=== PATIENT | female | born 1985 | race Caucasian/White ===

== ENCOUNTER 2021-07-14 00:13 | Emergency (ER) | payer OTHER ==
[~2021-07-14] VITALS: Ht 167.6 cm; Wt 59.0 kg
--- NOTE | 2021-07-14 00:25 | NUR ---
AUNG S/P INGESTING SHROOMS AT APPROX 1930. PT STATES SHE BELIEVES SHE LOST CONSCIOUSNESS AT ONE POINT AND BELIEVES IT WAS A SYNCOPAL. DOES ENDORSE A HX OF VASOVAGAL SYNCOPAL EPISODES. PT IS CURRENTLY AWAKE AND ALERT X4, RESPONDS TO QUESTIONS APPROPRIATELY AND BREATHING EVEN AND UNALBORED 100% RA. PUPILS DILATED BILATERALLY. PT REPORTS BEING "EXTREMELY DEHYDRATED" AND NASUEOUS. PT PLACED ON MONITOR AND V/S WNL. WAS AT THE BEDSIDE FOR EVAL.
--- NOTE | 2021-07-14 00:32 | NUR ---
PT UNABLE TO PROVIDE URINE AT THIS TIME. URINE CUP AT BEDSIDE.
[2021-07-14] MEDS ORDERED: ONDANSETRON HCL/PF 4 MG/2 ML VIAL ONE (00:40)
[2021-07-14] MEDS: ONDANSETRON HCL/PF 4 MG/2 ML VIAL IV ONE (00:55)
[2021-07-14] MEDS: IV NS 0.9% 1,000 ML BAG IV ONE (00:55)
--- NOTE | 2021-07-14 00:56 | NUR ---
20G IV LINE ESTABLISHED AT . BLOOD DRAWN AND SENT TO LAB.
[2021-07-14 01:09] LABS: BASOPHILS % (AUTO) 0.4 % (0.0-2.0); EOSINOPHILS % (AUTO) 0.5 % (0.0-6.0); HEMATOCRIT 45 % (33-45); HEMOGLOBIN 15.7 g/dL (11.5-14.8); LYMPHOCYTES # (AUTO) 1.2 K/uL (0.8-4.8); LYMPHOCYTES % (AUTO) 9.9 % (20.0-44.0); MEAN CORPUSCULAR HGB CONC 35 g/dl (31.0-36.0); MEAN CORPUSCULAR VOLUME 88 fL (82-100); MONOCYTES # (AUTO) 0.4 K/uL (0.1-1.30); MONOCYTES % (AUTO) 3.6 % (2.0-12.0); NEUTROPHILS # (AUTO) 10.1 K/uL (1.8-8.9); NEUTROPHILS % (AUTO) 85.6 % (43.0-81.0); PLATELET COUNT (AUTO) 237 K/uL (150-450); RED BLOOD CELL COUNT(AUTO) 5.17 MIL/uL (4.0-5.2); WHITE BLOOD COUNT (AUTO) 11.7 K/uL (4.3-11.0)
[2021-07-14 01:16] LABS: CALCIUM, SERUM 8.9 mg/dL (8.5-10.1); CARBON DIOXIDE 27 mmol/L (21-32); CHLORIDE 102 mmol/L (98-107); GLUCOSE 113 mg/dL (74-106); POTASSIUM 3.7 mmol/L (3.5-5.1); SODIUM SERUM 136 mmol/L (136-145); UREA NITROGEN, BLOOD 14 mg/dL (7-18)
[2021-07-14 01:25] LABS: ALANINE AMINOTRANSFERASE 33 U/L (12-78); ALKALINE PHOSPHATASE 92 U/L (46-116); ASPARTATE AMINOTRANSFERASE 27 U/L (15-37); BILIRUBIN,DIRECT 0.1 mg/dL (0.0-0.2); BILIRUBIN,TOTAL 0.5 mg/dL (0.2-1.0); TOTAL PROTEIN, SERUM 7.9 g/dL (6.4-8.2)
[2021-07-14 01:34] LABS: ACETAMINOPHEN 0 ug/ml (10-30); ALCOHOL, BLOOD < 3 mg/dL (0-0)
--- NOTE | 2021-07-14 01:59 | NUR ---
URINE COLELCTED AND SENT TO LAB
[2021-07-14 02:08] LABS: BILIRUBIN,URINE NEGATIVE (NEGATIVE); COLOR,URINE YELLOW (YELLOW); LEUKOCYTE ESTERASE ,URINE NEGATIVE (NEGATIVE); NITRITE, URINE NEGATIVE (NEGATIVE); PH,URINE 6.5 (5.0-8.0); PROTEIN,URINE NEGATIVE (NEGATIVE); UGLUCOSE NEGATIVE (NEGATIVE); UROBILINOGEN,URINE 0.2 EU/dL (0.2)
--- NOTE | 2021-07-14 03:39 | NUR ---
Patient discharged to home in stable condition. Written and verbal after care instructions given. Patient verbalizes understanding of instruction.
[2021-07-14 04:00] VITALS: BP 131/65
== END 2021-07-14 03:40 | disposition home or self-care (01) ==
LOC: ER 00:20
DX: T62.0X1A Toxic effect of ingested mushrooms, accidental (unintentional), initial encounter (principal); R11.0 Nausea; R44.3 Hallucinations, unspecified; Y92.89 Other specified places as the place of occurrence of the external cause
CPT/HCPCS: 36415; 80048; 80076; 80143; 80307; 80320; 81003; 82962; 85025; 96361; 96374; 99283; J2405; J7030; G0480